=== PATIENT | female | born 1955 | race Caucasian/White ===

== ENCOUNTER 2022-12-03 00:35 | Day surgery (SDC) | payer MEDICARE, OTHER, SELFPAY ==
--- NOTE | 2022-11-27 08:59 | PM.IMHP ---
H&P: HPI History of Present Illness Date/Time: 11/27/22 08:59 Chief Complaint: Overactive bladder/urge incontinence Narrative: She has a neurostimulator device. She would like it removed. She is not interested in other treatment options for her incontinence Review of Systems Review of Systems: All systems reviewed & are unremarkable except as noted in HPI and below Exam Narrative: No acute distress Normal breathing Alert and oriented x3 Assessment and Plan Assessment and plan (1) Urge incontinence: Code(s): N39.41 - Urge incontinence Status: Acute Assessment and Plan: Will remove her neurostimulator device. She understands risks of bleeding, infection, wound complications, incomplete device removal. She agrees to proceed
[2022-11-29 09:24] VITALS: BMI 28.0
--- NOTE | 2022-11-29 09:39 | PC.NURSE ---
Report to the Outpatient Waiting Room, entrance under the green pavilion located off [facility], at time ___10:00AM____ on date __12/03/22 . Planned Procedure Time: __12:00PM . Time changes happen often and if your time is changed the preop area will call you the afternoon before. - You and your visitor will be asked to self-screen and do not enter if you have any COVID symptoms. - Only one visitor is requested with a max of two and NO children visitors are allowed at this time. - The patient visitor may be requested to leave or wait in car when not with patient due to distancing restrictions. - A mask is optional within the hospital at this time. Patients may have clear liquids (water, carbonated beverages, clear teas, apple juice) until 3 hours prior to surgery with a maximum of 20 ounces. - No food from midnight until time of surgery Take the following medications with a SIP of water the morning of surgery: __ADVAIR DISKUS DO NOT STOP ANY OF YOUR OTHER PRESCRIPTION MEDICATIONS PRIOR TO SURGERY ?EXCEPT THE FOLLOWING Medications to discontinue per physician ___NONE Date to take last dose Please no make-up, nail azeri, hairspray, perfume, deodorant, or body powder the day of surgery. No jewelry (including any body piercings) or valuables the day of surgery, leave them at home. Please take a shower or bath the night before, or the morning of, surgery with an antibacterial soap. Wear comfortable, loose fitting clothing. Children are encouraged to wear pajamas. - Jewelry must be removed prior to entering the operating room. Rings and piercings that are not removed may be cut off. - The hospital will not accept responsibility for valuables. - Please leave all valuables, including medications, at home the day of surgery. If you are going home after surgery, a licensed otr refrigerated cdl truck driver must drive you home. - NO public transportation without another adult if you receive anesthesia. - We recommend that an adult stay with you for 24 hours following discharge. - We also recommend that you do not drive, make important decision, drink alcoholic beverages, or take any drugs that were not prescribed by your health care provider for at least 24 hours after your discharge time. Follow any additional instructions given to you from your surgeon. If you or anyone in your household have experienced Covid symptoms in the past week, please notify your surgeon or the nurse liaison at the phone number below for possible testing. Telephone instructions given to ___PATIENT and asked if any additional questions and then verbalized understanding. Patient advised to call surgeon office or pre surgery nurse liaison [phone] if any additional questions.
--- NOTE | 2022-12-02 16:17 | WPDANESEPPF ---
Anes - Initial Pre Proc Eval Procedure: Operation Date: 12/03/22 11:30 Proposed Procedures p Removal of Interstim - Robert Jones MD Date/Time: 12/02/22 16:17 Surgeon: Robert Jones MD Pre Op Diagnosis: overactive bladder Patient Data Age: 67 Gender: F Height: 1.68 m Weight: 79 kg Allergies Allergy/AdvReac Type Severity Reaction Status Date / Time codeine Allergy Rash, Verified 12/03/22 10:03 NAUSEA morphine Allergy Unknown Verified 12/03/22 10:03 penicillin G Allergy throat Verified 12/03/22 10:03 swelling Home Medications Medication Instructions Recorded Confirmed Type famotidine 20 mg tablet (Pepcid AC) 20 mg PO DAILY PRN Indigestion 11/29/22 12/03/22 History fluticasone 250 mcg-salmeterol 50 1 inh inhalation QAM 11/29/22 12/03/22 History mcg/dose blistr powdr for inhalation (Advair Diskus) levocetirizine 5 mg tablet (Xyzal) 5 mg PO DAILY PRN Congestion 11/29/22 12/03/22 History loratadine 10 mg capsule 10 mg PO DAILY PRN Congestion 11/29/22 12/03/22 History montelukast 10 mg tablet 10 mg PO DAILY 11/29/22 12/03/22 History pravastatin 20 mg tablet 20 mg PO DAILY 11/29/22 12/03/22 History zolpidem 12.5 mg tablet,extended 12.5 mg PO HS 11/29/22 12/03/22 History release,multiphase Patient hx anesthesia problems: none Family hx anesthesia problems: none Results Review: All pre-operative results and documents have been reviewed as part of the pre-operative evaluation. [facility] Past Medical History Medical History (Updated 12/02/22 @ 16:18 by Karri Patel MD) Asthma Chronic GERD Urge incontinence Social History Social History Smoking status: Never smoker Alcohol intake: current Drinks per week: 5 Substance use: never Living arrangements: with family Additional living arrangements comments: [facility] Spiritual care concerns: No Anes - Eval Final PreProcedure Day of Procedure 12/02/22 16:17 Patient weight: overweight Heart: regular rate and rhythm Lungs: clear to auscultation and normal air movement Airway: Mallampati scale class II Neurological: alert and oriented Last oral intake: >/= 8 hours ASA classification: II Emergent: no Anesthetic plan: proceed Anesthesia type and monitoring: general GIVS and LMA Results Review: All pre-operative results and documents have been reviewed as part of the pre-operative evaluation. Informed Consent: The patient's anesthetic plan and its attendant risks and benefits were discussed with the patient/family/POA. Questions were solicited and answers provided to the satisfaction of the patient/family/POA.
--- NOTE | ~2022-12-03 | XR_ITS ---
EXAMINATION: XR fluoroscopy no charge DATE: 12/03/2022 11:39 INDICATION: InterStim removal TECHNIQUE: A single frontal fluoroscopic view of the sacrum was obtained during procedure performed sofía Jones. Radiologist was not present for the procedure or imaging. The amount of fluoroscopy ti me used during this procedure was 0.1 minutes. COMPARISON: None. FINDINGS: The tip of a metallic forcep potentially for marking projects over the right InterStim lead at the le rosmery of the left mid sacral ala. There are surgical clips project over both the left and right sides o f the central pelvis. IMPRESSION: 1. Fluoroscopy utilized during reported removal of a right InterStim lead. See procedure note for fur ther detail. Reviewed, dictated and finalized at location A. IMPRESSION: 1. Fluoroscopy utilized during reported removal of a right InterStim lead. See procedure note for further detail.
--- NOTE | 2022-12-03 04:39 | WPDHPUPDATE1 ---
History and Physical Update Update Date/Time: 12/03/22 04:39 History and Physical has been reviewed, including an updated exam of the patient. There are NO changes in the patient's condition. Risks, benefits, and alternatives have been discussed and questions answered. Patient agrees to proceed with procedure.
[2022-12-03] MEDS: LACTATED RINGERS 1,000 ML 30 ML IV CONT (09:20)
[2022-12-03 10:07] VITALS: BP 124/72; PULSE 74; RESP 18; TEMP 36.3; O2SAT 100
[2022-12-03] MEDS: ceFAZolin 2 GM/D5W 50 ML 2 GM/50 ML BAG IVPB (11:14)
[2022-12-03] MEDS: BUPIVACAINE/EPINEPHRINE 0.25% 10 ML VIAL 20 ML INFILTRATE (11:26)
[2022-12-03 11:48] VITALS: BP 95/53; PULSE 77; RESP 16; O2SAT 100
--- NOTE | 2022-12-03 11:49 | P.OP_ITS ---
Procedure Note - Detailed Date of Procedure 12/03/22 Pre-op Diagnosis overactive bladder Urge incontinence Post-op Diagnosis Same Procedure Performed Removal sacral lead. Removal of implantable pulse generator Surgeon Robert Jones MD [employer] Person None Anesthesia MAC and Local Indications This is a patient with InterStim device in place. It has been there since 2014. She would like the device removed. She understands risks of bleeding, infection, incomplete device removal, wound complications. She agrees to proceed Findings Uncomplicated device removal Description of Procedure She was correctly identified. Informed consent obtained. From the operating room. She was given MAC anesthesia. She was placed in the prone position. Lower back and buttock were prepped and draped in a sterile fashion. Time-out performed. I anesthetized the skin over the pulse generator. I incised the skin. I dissected down to locate the pulse generator. It was explanted intact. I removed the capsule around the pulse generator. I used fluoroscopy to identify my sacral lead. I anesthetized the skin. I incised the skin and located the lead and removed it in its entirety. I irrigated out all wounds. I assured hemostasis. I closed the subcutaneous tissues with 2-0 Vicryl. Skin with 4-0 Monocryl. She was awakened transferred to PACU in stable condition. Estimated Blood Loss 2 Complications No immediate complications Condition Stable Disposition PACU
[2022-12-03 12:15] VITALS: BP 108/52; PULSE 68; RESP 16; O2SAT 100
[2022-12-03] MEDS: HYDROcodone/acetaminophen (*CRX) 5-325 MG TABLET 1 TAB PO (12:36)
[2022-12-03 12:40] VITALS: BP 96/52; PULSE 63; RESP 16
--- NOTE | 2022-12-03 13:07 | SUR.PHASEII ---
pt tolerated oxycodone well. pt said she is ready to go home.
== END 2022-12-03 13:10 | disposition home or self-care (01) ==
PROVIDERS: PCP Internal Medicine; Visit Provider Urology
PROC: (CPT 64585; principal; 2022-12-03 11:30)
DX: Z45.42 Encounter for adjustment and management of neurostimulator (principal); J45.909 Unspecified asthma, uncomplicated; K21.9 Gastro-esophageal reflux disease without esophagitis; Z79.51 Long term (current) use of inhaled steroids
CPT/HCPCS: 64585; 64595; 99199; A9270; J0690; J2250; J2704; J3010; J7120